=== PATIENT | male | born 1955 | race Caucasian/White ===

== ENCOUNTER 2019-01-07 12:38 | Inpatient (IN) | payer BC ==
[~2019-01-07] VITALS: Ht 170.2 cm; Wt 75.7 kg
[2019-01-07 12:40] VITALS: BP_SYST 140
--- NOTE | 2019-01-07 12:45 | NUR ---
Patient to ER bed 1 to gown for evaluation. Side rails up.
--- NOTE | 2019-01-07 13:00 | NUR ---
pt arrives from home w/ c/o dizziness. PT is AAOx4. VSS. Pt denies any SOB or CP. Will conitnue to monitor
--- NOTE | 2019-01-07 13:13 | NUR ---
ER at bedside examining patient.
[2019-01-07] MEDS ORDERED: MECLIZINE HCL 25 MG TABLET (ANITVERT) PO ONE (13:15)
--- NOTE | 2019-01-07 13:18 | NUR ---
medicated the pt with Antivert. Will reassess
--- NOTE | 2019-01-07 14:10 | NUR ---
pt was going to be dc'd. However, the pt wants to be admitted. Dr. Ford called.
--- NOTE | 2019-01-07 15:15 | NUR ---
# 20 gauge angiocath placed to LAC. Use of asceptic technique. Opsite placed over site. Blood return noted. Blood for lab drawn from site. Flushed with 10 cc of normal saline. No evidence of infiltration noted. Patient tolerated well.
[2019-01-07] MEDS ORDERED: methylPREDNISolone SOD SUCC/PF 62.5 MG/ML VIAL IVP ONE (15:45)
[2019-01-07] MEDS ORDERED: LORazepam 2 MG/ML VIAL IVP ONE (15:45)
[2019-01-07 16:00] LABS: BASOPHILS % (AUTO) 0.3 % (0.0-2.0); HEMATOCRIT 45.9 % (36-54); HEMOGLOBIN 15.7 g/dL (14.0-18.0); LYMPHOCYTES # (AUTO) 0.5 K/uL (1.0-5.5); LYMPHOCYTES % (AUTO) 4.4 % (20.5-51.5); MEAN CORPUSCULAR HEMOGLOBIN 31 pg (27-31); MEAN CORPUSCULAR HGB CONC 34 % (32-36); MEAN CORPUSCULAR VOLUME 89 fL (79.0-98.0); MONOCYTES # (AUTO) 0.3 K/uL (0.0-1.0); MONOCYTES % (AUTO) 2.5 % (1.7-9.3); NEUTROPHILS # (AUTO) 11.5 K/uL (1.8-7.7); NEUTROPHILS % (AUTO) 92.8 % (40.0-70.0); PLATELET COUNT (AUTO) 190 K/uL (130-430); RED BLOOD CELL COUNT(AUTO) 5.15 MIL/uL (4.2-6.2); RED CELL DISTRIBUTION WIDTH 12.9 % (9.0-15.0); WHITE BLOOD COUNT (AUTO) 12.4 K/uL (4.8-10.8)
--- NOTE | 2019-01-07 16:05 | NUR ---
medicated the pt with Ativan 1mg and SoluMedrol 125mg IVP. Will reassess
[2019-01-07 16:12] LABS: CALCIUM 9.1 mg/dL (8.4-11.0); CREATININE 0.91 mg/dL (0.55-1.30); POTASSIUM 3.8 mmol/L (3.5-5.1)
[2019-01-07 16:17] LABS: TOTAL BILIRUBIN 0.5 mg/dL (0.0-1.0)
[2019-01-07 16:42] LABS: BILIRUBIN,URINE NEGATIVE (NEGATIVE); BLOOD, URINE 1+ (NEGATIVE); CLARITY/URINE CLEAR (CLEAR); COLOR,URINE YELLOW (YELLOW); GLUCOSE,URINE NEGATIVE (NEGATIVE); KETONES,URINE NEGATIVE (NEGATIVE); LEUKOCYTE ESTERASE ,URINE NEGATIVE (NEGATIVE); NITRITE, URINE NEGATIVE (NEGATIVE); PROTEIN URINE NEGATIVE (NEGATIVE); UROBILINOGEN,URINE 0.2 (0.2-1.0)
[2019-01-07 16:55] LABS: BACTERIA,URINE FEW /HPF (None Seen); MUCUS,URINE None Seen /LPF (None Seen); RBC,URINE 0-3 /HPF (0-3); WBC,URINE 0-3 /HPF (0-3)
--- NOTE | 2019-01-07 17:15 | NUR ---
pt is sleeping in bed. Eyes are closed.
--- NOTE | 2019-01-07 17:52 | NUR ---
Dr. Ford is at the bedside speaking with the pt.
[2019-01-07] MEDS ORDERED: TAMS-11 PO (18:01)
[2019-01-07] MEDS ORDERED: METO25TA3 PO (18:01)
[2019-01-07] MEDS ORDERED: CIPR-211 PO (18:01)
[2019-01-07] MEDS ORDERED: DOXY75TA13 PO (18:01)
[2019-01-07] MEDS ORDERED: FINA5TAB3 PO (18:01)
--- NOTE | 2019-01-07 18:02 | NUR ---
Patient transported to radiology via , accompanied by automobile radiator mechanic.
--- NOTE | 2019-01-07 18:04 | NUR ---
pt returned from radiology.
--- NOTE | 2019-01-07 18:46 | NUR ---
Medication reconciliation completed with information provided by patient. Any prior medication reconciliation on file was reviewed and corrected.
--- NOTE | 2019-01-07 18:47 | NUR ---
patient will be admitted under the care of Dr. Ford to tele OBS. Orders received from Dr. Ford.
--- NOTE | 2019-01-07 18:58 | NUR ---
ADMISSION NOTE Received patient from ER via mima, received report from COLETTE ELIZABETH. Patient admitted with diagnosis of ATAXIA/DIZZINESS. Patient oriented to hospital routine, call light, toileting and safety-patient verbalized understanding.
--- NOTE | 2019-01-07 19:05 | NUR ---
Transfer to tele via ACLS protocol. Licensed nurse present. IV present no signs or symptoms of infiltration. Bedside report given to Armand ELIZABETH.
--- NOTE | 2019-01-07 19:14 | NUR ---
CALLED ER PATIENT STATES HE LEFT HIS ORANGE PHONE CHARGING CABLE ON THE GURNEY, SPOKE WITH COLETTE ELIZABETH, SHE DID NOT FIND AN ORANGE PHONE CHARGING CABLE, WILL INFORM JAQUELINE ELIZABETH, REPORT WAS ENDORSED TO JAQUELINE ELIZABETH. Addendum: 01/07/19 at 1920 by Armand Fortune RN PATIENT FOUND HIS YIELD LOSS INSPECTOR IN HIS BACKPACK
[2019-01-07 19:16] VITALS: BP_SYST 146
[2019-01-07 20:15] VITALS: BP_SYST 144
[2019-01-07] MEDS ORDERED: ACETAMINOPHEN 325 MG TABLET PO PRN (20:30)
--- NOTE | 2019-01-07 20:30 | NUR ---
CHANGE OF SHIFT: report given by nurse Amy, admitted for dizziness, pt. sleeping when checked, denies any discomfort when VS checked. placed on industrial roofer helper and shows sinus rhythm.IV lock on left antecubital. moves all extremities. instructed to use call light when help needed.
[2019-01-07] MEDS: ASPIRIN 81 MG TABLET(ECOTRIN) PO SCH (20:45)
--- NOTE | 2019-01-07 21:00 | NUR ---
NOTES: pt. asleep when checked. in no acute distress. all his belongings including back pack in the bed, wants to keep it. urinal at bedside.
[2019-01-07] MEDS ORDERED: ASPIRIN 81 MG TABLET(ECOTRIN) PO ONE (22:30)
--- NOTE | 2019-01-07 23:00 | NUR ---
NOTES: awakened for VS, due med given and snacks. call light within reach. no dizziness noted.
[2019-01-08 00:36] VITALS: BP_SYST 131
--- NOTE | 2019-01-08 01:55 | NUR ---
NOTE PATIENT IS SLEEPING, STABLE, NO SIGNS OF RESPIRATORY DISTRESS. CALL LIGHT IS WITHIN REACH. BED IS LOCKED, ALARMED, AND AT THE LOWEST LEVEL.
--- NOTE | 2019-01-08 02:15 | NUR ---
NOTES: pt. sleeping when checked. cardiac pattern unchanged. no complaints.
--- NOTE | 2019-01-08 04:00 | NUR ---
NOTES: condition unchanged. remain sleeping.
--- NOTE | 2019-01-08 04:40 | NUR ---
Neuro Consultation Paged Reason for consultation: Ataxia Was consult called: Yes Person who was notified: Desi Consulting Physician: Dr Lito Sharma Spice Fumigator Specialty: Neuro Spice Fumigator Ordered By: Dr Ford
--- NOTE | 2019-01-08 05:30 | NUR ---
NOTES: pt. is already awake and ambulated outside his room to the nurses station, did not use call light , denies any dizziness. pt. showed me a video about some test for his dizziness,wants me to do it but told him needs to inform MD and should be aware, pt. trying to diagnose himself. CT scan of head with pending result. advised to stay in the room and not to ambulate outside due to possible fall when he gets dizzy, call light within reach. pt. to the restroom and voided. offered snack, will wait for breakfast.
--- NOTE | 2019-01-08 06:47 | NUR ---
CLOSING NOTES; no dizziness noted, IV lock patent. for further care and assistance. consult this am with neurologist. awake, alert. call light within reach.
[2019-01-08 08:00] VITALS: BP_SYST 156
--- NOTE | 2019-01-08 08:00 | NUR ---
AM NOTES Received patient from operation shift supervisor nurse. Patient alert, oriented x4. Patient is ambulatory with steady gait. Still complaints of dizziness at times. Patient encourage to stay in bed. Denies chest pain. No shortness of breath. Fall precaution in place. Call light within reach.
[2019-01-08] MEDS: FINASTERIDE 5 MG TABLET (PROSCAR) PO SCH (08:41)
[2019-01-08] MEDS: METOPROLOL SUCCINATE 25 MG TAB.SR.24H (TOPROL XL) PO SCH (08:42)
[2019-01-08] MEDS: FAMOTIDINE 20 MG TABLET PO SCH (08:45)
[2019-01-08] MEDS: ASPIRIN 81 MG TABLET(ECOTRIN) PO SCH (08:45)
--- NOTE | 2019-01-08 10:10 | NUR ---
ROUNDS Dr. Ford make rounds and talking to patient at bed side
--- NOTE | 2019-01-08 12:10 | NUR ---
RN ROUNDS Patient is sitting at the bedside. No complaints of dizziness at this time. No SOB. No signs of respiratory distress. Will continue to monitor.
[2019-01-08 12:22] VITALS: BP_SYST 135
--- NOTE | 2019-01-08 14:10 | NUR ---
RN ROUNDS Patient was seen walking in the hallway. Patient assisted back to the room. Patient needs met and attended No complaints of dizziness at this time. No SOB. No signs of respiratory distress. Will continue to monitor.
--- NOTE | 2019-01-08 16:00 | NUR ---
notes- walking in the hallway with steady gait. Denies any dizziness so far.
[2019-01-08 16:43] VITALS: BP_SYST 144
--- NOTE | 2019-01-08 17:07 | NUR ---
MD ROUNDS Seen by Dr. Sharma at bedside. Per MD he can be discharge in the morning.
[2019-01-08] MEDS: MECLIZINE HCL 25 MG TABLET (ANITVERT) PO PRN (17:38)
--- NOTE | 2019-01-08 17:40 | NUR ---
DIZZINESS Patient complaits of dizziness when walking, patient was encourage to remain in bed. PRN Meclizine HCL 25mg tab was given.
--- NOTE | 2019-01-08 18:30 | NUR ---
CLOSING NOTES Patient is awake sitting in bed, oriented x3. No dizziness at this time. No signs of respiratory distress. No shortness of breath. Denies pain and discomfort at this time. Safety precaution in place, bed in low position. Call light within reach. Patient needs met and attended throughout the shift. Will endorsed to slot shift supervisor nurse for continuity of care.
--- NOTE | 2019-01-08 19:25 | NUR ---
initial notes: pt on bed, alert. awake, oriented x 4. no pain. no sob and no acute distress. ambulatory. iv site is intact. vital sign taken and recorded. nedds attended. call light in reach.
--- NOTE | 2019-01-08 19:50 | NUR ---
ASSUMPTION OF CARE BEDSIDE REPORT RECEIVED FROM CLARA MCCARTNEY.
--- NOTE | 2019-01-08 19:50 | NUR ---
bedside report given to am rn.
--- NOTE | 2019-01-08 19:55 | NUR ---
INITIAL NOTE AT INITIAL ASSESSMENT, PATIENT IS RESTING IN BED, STABLE, NO SIGNS OF RESPIRATORY DISTRESS. PATIENT VERBALIZES NO PAIN. PLAN OF CARE FOR THE EVENING IS COMMUNICATED WITH THE PATIENT. PATIENT SUCCESSFULLY DEMONSTRATES CORRECT USAGE OF CALL LIGHT AT THIS TIME. BED IS LOCKED, ALARMED, AND AT THE LOWEST LEVEL. FALL AND SAFETY PRECAUTIONS WILL BE IN PLACE THROUGHOUT THE SHIFT.
[2019-01-08 20:26] VITALS: BP_SYST 136
--- NOTE | 2019-01-08 21:55 | NUR ---
NOTE PATIENT IS RESTING IN BED, STABLE, NO SIGNS OF RESPIRATORY DISTRESS. CALL LIGHT IS WITHIN REACH. BED IS LOCKED, ALARMED, AND AT THE LOWEST LEVEL.
--- NOTE | 2019-01-08 23:55 | NUR ---
NOTE PATIENT IS SLEEPING, STABLE, NO SIGNS OF RESPIRATORY DISTRESS. CALL LIGHT IS WITHIN REACH. BED IS LOCKED, ALARMED, AND AT THE LOWEST LEVEL.
[2019-01-09 00:02] VITALS: BP_SYST 117
--- NOTE | 2019-01-09 01:55 | NUR ---
TRANSFER OF CARE BEDSIDE REPORT GIVEN TO CLARA RIVERA AT THIS TIME. PATIENT IS CURRENTLY RESTING IN BED, STABLE, NO SIGNS OF RESPIRATORY DISTRESS. CALL LIGHT IS WITHIN REACH. BED IS LOCKED, ALARMED, AND AT THE LOWEST LEVEL. FALL AND SAFETY PRECAUTIONS HAVE BEEN TAKEN THROUGHOUT THE SHIFT. ALL CARE HAS BEEN ENDORSED TO CLARA RIVERA AT BEDSIDE.
--- NOTE | 2019-01-09 04:00 | NUR ---
ROUNDS Patient in bed, sleeping. No signs of discomfort noted. Chest rise and fall even bilaterally. Call light with patient. Will continue to monitor.
--- NOTE | 2019-01-09 06:35 | NUR ---
CLOSING NOTES Patient in bed sleeping at this time. No s/s of acute distress noted. Breathing even and unlabored. All needs met throughout shift. Fall and safety precautions maintained throughout shift. Will continue to monitor until patient care is endorsed to oncoming dayshift nurse.
--- NOTE | 2019-01-09 07:25 | NUR ---
OPENING NOTE Patient resting in the bed. No acute distress. AAO x 4. Denied of pain and dizziness at this time. Skin warm and dry to touch. SL intact to LAC, no redness, no swelling, patent. Discussed safety issue, use call light when needs help, and plan of care, verbally understanding. Safety measure maintained. Call light within reached. Bed locked in low position, side rails sup. Refused bed alarm, risk and benefit explained, verbally understanding. Will continue to monitor.
[2019-01-09 07:55] VITALS: BP_SYST 139
[2019-01-09] MEDS: FAMOTIDINE 20 MG TABLET PO SCH (09:00)
[2019-01-09] MEDS: ASPIRIN 81 MG TABLET(ECOTRIN) PO SCH (09:00)
[2019-01-09] MEDS: FINASTERIDE 5 MG TABLET (PROSCAR) PO SCH (09:19)
[2019-01-09] MEDS: METOPROLOL SUCCINATE 25 MG TAB.SR.24H (TOPROL XL) PO SCH (09:19)
--- NOTE | 2019-01-09 09:30 | NUR ---
AMBULATED IN THE HALLWAY IN STEADY GAIT. NO ACUTE DISTRESS. DENIED OF DIZZINESS.
--- NOTE | 2019-01-09 10:46 | NUR ---
PAGED PAGED CANDY HARGROVE AT [phone] SPOKE WITH NIRAV.
--- NOTE | 2019-01-09 11:38 | NUR ---
SEEN AND EXAMINED BY CANDY KAYE WITH DISCHARGE ORDER.
[2019-01-09] MEDS: MECLIZINE HCL 25 MG TABLET (ANITVERT) PO PRN (11:52)
[2019-01-09] MEDS ORDERED: MECL12.584 PO (12:15)
[2019-01-09 12:33] VITALS: BP_SYST 130
[2019-01-09 12:35] VITALS: BP_SYST 142
--- NOTE | 2019-01-09 13:00 | NUR ---
D/C Patient Patient given medication reconciliation form and D/C instructions. Exit Care provided. Patient verbalized understanding. MD discussed with patient the results and treatment provided. Ambulatory with steady gait for discharge to home. Patient in stable condition, ID band removed. IV catheter removed, intact and dressing applied, no active bleeding. Rx of Meclizine given. Patient educated on pain and dizziness management. All belongings sent with patient.
== END 2019-01-09 13:00 | disposition home or self-care (01) | DRG 149 ==
LOC: SED 12:38 → STU 18:41 → OBSVTOIN 01-08 10:57
PROVIDERS: ADMIT Internal Medicine; ATTEND Internal Medicine
DX: H81.10 Benign paroxysmal vertigo, unspecified ear (principal); Z79.899 Other long term (current) drug therapy; Z88.0 Allergy status to penicillin; Z79.82 Long term (current) use of aspirin
CPT/HCPCS: 36415; 70450-TC; 80053; 81000-TC; 85025; 93005; 96374; 96375; 99285; G0378; J2060; J2930; J8597

== ENCOUNTER 2021-02-28 18:36 | Emergency (ER) | payer BC ==
[~2021-02-28] VITALS: Ht 170.2 cm; Wt 77.1 kg
[~2021-02-28 18:36] MED LIST: FINA5TAB3 PO; MECL-225 PO; METO25TA3 PO; TAMS-11 PO
[2021-02-28 18:48] VITALS: BP_SYST 128
--- NOTE | 2021-02-28 18:53 | NUR ---
Patient to ER bed 7 to gown for evaluation. Side rails up. Report given to CLARA Yap
--- NOTE | 2021-02-28 19:01 | NUR ---
Patient BIB by family from home. C/O diarrhea x 1 month, Patient reported, had diarrhea over one month, 2-3 times a day, no vomitting and abdominal pain. Patient seen by PMD and Rx Bactrim and Flagyl . Patient request CT scan and Stool exam.
--- NOTE | 2021-02-28 19:09 | NUR ---
ER Dr. SANDERS at bedside examining patient.
--- NOTE | 2021-02-28 19:33 | NUR ---
Stool sample collected and sent to lab.
[2021-02-28 19:51] VITALS: BP_SYST 128
--- NOTE | 2021-02-28 19:51 | NUR ---
Patient given written and verbal discharge instructions and verbalizes understanding. ER MD discussed with patient the results and treatment provided. Patient in stable condition. ID arm band removed. No Rx given. Patient educated on pain management and to follow up with PMD. Pain Scale 0/10. Opportunity for questions provided and answered.
== END 2021-02-28 19:51 | disposition home or self-care (01) ==
LOC: SED 18:36
DX: R19.7 Diarrhea, unspecified (principal); I10 Essential (primary) hypertension; Z88.0 Allergy status to penicillin; Z88.8 Allergy status to other drugs, medicaments and biological substances
CPT/HCPCS: 87045-TC; 87046; 87177; 99281; 99283